=== PATIENT | female | born 1965 | race Caucasian/White ===

== ENCOUNTER 2019-03-15 13:39 | Emergency (ER) | payer BC ==
--- OUTSIDE RECORDS SUMMARY | 2019-03-15 14:30 | XMS REPORT | Continuity of Care Document ---
:1965 External Reference #:[id number] Author Name Briana Rangel NRigoberto (transmitted by agent of provider Maricruz Richards) Address [address], [place] [address] Care Team Providers Name Role Phone Fabiana Irby MD - Internal Care Team Information Knee Bolter Medicine Problems Active Problems Provider Date Hypothyroidism due to Nicolasa's thyroiditis Fabiana Irby M.D. Onset: Androgen-independent hirsutism Fabiana Irby M.D. Onset: 03/05/2015 Chronic low back pain Onset: Vitamin D deficiency Fabiana Irby M.D. 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 Migraine with typical aura Mai Bains MD Onset: 07/28/2015 Sensory function status: taste and smell Mai Bains MD Onset: 09/17/2016 Social History Type Date Description Comments Sex Unknown Tobacco Use Start: Unknown End: Former Cigarette Smoker quit long time ago Unknown only smoked 4 pk per year Smoking Status Reviewed: 03/13/19 Former Cigarette Smoker quit long time ago only smoked 4 pk per year ETOH Use Consumes 1 glass of wine per day Tobacco Use Start: Unknown End: Patient is a former Unknown smoker Recreational Drug Use Denies Drug Use Exercise Type/Frequency Exercises regularly walks dog, walking in the young Allergies, Adverse Reactions, Alerts Active Allergies Reaction Severity Comments Date Amoxicillin 03/28/2015 Augmentin 12/29/2015 Latex 07/05/2018 Medications Active Medications SIG Qnty Indications Ordering Date Provider Triamcinolone apply to dry skin 120ml R21 Briana Rangel, 03/13/2019 Acetonide once or twice N.P. 0.1% Lotion daily Valacyclovir HCL take 1 tablet by 30tabs Cindy Zeng, 02/08/2019 mouth twice a day 500mg Tablets x 5 days prn recurrences Estrace 0.5grams per 42.500gm Cindy Zeng, 01/09/2019 0.1mg/GM vagina 2x/week Cream Simethicone Extra one by mouth four 60caps R14.0 Briana Rangel, 07/12/2018 Strength times a day as N.P. 125mg needed Capsules Celecoxib Take One Capsule 30caps Briana Claire, 12/20/2017 200mg By Mouth Every Day N.P. Capsules as Needed Gabapentin Take One Capsule 90caps N95.1 Briana Claire, 12/02/2017 300mg By Mouth AT N.P. Capsules Bedtime Fluticasone spray 2 sprays 48gm J01.90 Briana Rangel, 03/25/2016 Propionate each nostril daily N.P. 50mcg/Act as needed Suspension Synthroid Take 1 Tablet By 90tabs Briana Rangel, 03/05/2015 88mcg Mouth Every Day N.P. Tablets Needs-- Labs For Further Refills Motrin Ib 1-2 twice a day as Unknown 200mg needed Tablets History Medications Estradiol 0.5gram vaginally 42.500gm Cindy Zeng MD 01/09/2019 - 0.1mg/GM every night at 01/09/2019 Cream bedtime x 14 nights then 2x/week Immunizations CPT Code Status Date Vaccine Reaction Lot # [id number] Given 12/02/2017 Influenza Virus Vaccine, No immediate [id number] Quadrivalent, Split, reaction... Preservative Free 32647 Given 11/30/2016 Tdap - No immediate [id number] Tetanus/Diptheria/Acellular reaction... Pertussis 88166 Given 11/30/2016 Influenza Virus Vaccine, No immediate reaction. [id number] Quadrivalent, Split, Preservative Free 34606 Given 12/04/2015 Influenza Virus Vaccine, Quadrivalent, Split, Preservative Free 18072 Given 03/05/2015 Influenza Virus Vaccine, [id number] Quadrivalent, Split, Preservative Free Vital Signs Date Vital Result Comment 03/13/2019 9:47am Height 66.25 inches 5'6.25" Weight 134.38 lb Heart Rate 73 /min BP Systolic Sitting 99 mmHg BP Diastolic Sitting 65 mmHg Body Temperature 97.5 F O2 % BldC Oximetry 99 % BMI (Body Mass Index) 21.5 kg/m2 01/09/2019 4:08pm Height 66.25 inches 5'6.25" Weight 136.12 lb Heart Rate 66 /min BP Systolic 97 mmHg BP Diastolic 67 mmHg O2 % BldC Oximetry 100 % BMI (Body Mass Index) 21.8 kg/m2 Results Test Acquired Date Facility Test Result H/L Range Note Cytology 01/09/2019 [facility] Cytology SEE RESULT BELOW [address] [place] [address] [phone] PDFReport [id number] <SEE NOTE> Laboratory test 09/18/2018 [facility] Lyme Screen Negative Negative finding [address] W/ [place] [address] [phone] 1 SEE RESULT BELOW Name: LEON BRADY : [address]: Cindy Zeng MD Acct: [id number] Unit: [id number] AGE: 53 Location: [facility] Re01/09/19 SEX: F Status: REG REF SPEC: [id number] ANDREE: 01/09/[address]: Cindy Zeng MD REQ: [id number] RECD: 01/09/19 STATUS: SOUT _ ORDERED: TP IMAGE ANALYS, HPV/Thin Prep, HPV 16/18 GENE COMMENTS: [id number] FINAL DIAGNOSIS Negative for Intraepithelial lesion or Malignancy HPV RESULTS Date Time Test Result Flag (u) Normal Range 01/09/19 1619 HPV CARA RFLX GE POSITIVE An Negative The high-risk HPV types detected by the assay include: 16, 18, 31, 33, 35, 39, 45, 51, 52, 56, 58, 59, 66, and 68. HPV GENOTYPE RESULTS Date Time Test Result Flag (u) Normal Range 01/09/19 1619 HPV 16 Genotype Negative Negative HPV 18/45 GT Negative Negative SPECIMEN(S) RECEIVED A. Ectocervical/Endocervical CONTINUED ON NEXT PAGE DEPARTMENT OF PATHOLOGY, [address] [place] [address] Milo Dumont M.D. Director [facility] # [id number] CYTOLOGY ADEQUACY Specimen Adequacy: Satisfactory of evaluation Transformation zone component cannot be definitely identified due to presence of atrophy or other hormonal changes CYTOLOGY PATIENT INFORMATION Patient Information: HPV: High risk HPV RNA testing regardless of pap results. HPV 16/18 Genotype Reflex Actual Specimen Date: 01/09/19 LMP If Unknown: Last Menstrual Period Not Given. ?: N Post Menopausal?: Y Hysterectomy?: N Signed by and Reported on: TRAVIS La(ASCP) [id number] This Pap test was evaluated with the assistance of the [employer] System. Due to cytologic findings at the bleach mixer microscope, comprehensive manual rescreening by a Garden Worker may be required. The Pap Smear is a screening test designed to aid in the detection of premalignant and malignant conditions of the uterine cervix. It is not a diagnostic procedure and should not be used as the sole means of detecting cervical cancer. Both false- positive and false- negative reports do occur. Depending on your risk status, a Pap smear should be obtained and evaluated every 1-3 years. END OF REPORT DEPARTMENT OF PATHOLOGY, [address] [place] [address] Milo Dumont M.D. Director [facility] # [id number] Procedures Date Code Description Status 01/30/2019 [id number] Mammogram Completed 01/26/2018 [id number] Mammogram Completed 12/07/2016 [id number] Mammogram Completed 07/22/2015 [id number] Mammogram Completed 04/10/2014 [id number] Mammogram Completed 03/21/2013 [id number] Colonoscopy Completed 03/15/2013 [id number] Mammogram Completed 10/29/2011 [id number] Mammogram Completed 10/27/2010 [id number] Mammogram Completed 05/26/2009 [id number] Mammogram Completed Medical Devices Description No Information Available Encounters Description No Information Available Assessments Date Code Description Provider 03/13/2019 R21 Rash and other nonspecific skin eruption Briana Rangel, N.P. 01/09/2019 Z01.419 Encounter for gynecological examination Cindy Zeng MD (general) (routine) without abnormal findings 01/09/2019 X58.xxxD Exposure to other specified factors, Cindy Zeng MD subsequent encounter Plan of Treatment Future Appointment(s):05/01/2019 3:00 pm - Cindy Zeng MD at [facility]01/17/2020 4:00 pm - Cindy Zeng MD at [facility]03/13/2019 - Briana Rangel, N.P.R21 Rash and other nonspecific skin eruptionNew Medication:Triamcinolone Acetonide 0.1 % - apply to dry skin once or twice dailyComments:Your rash is related to dry skin. I have prescribed a steroid based lotion, Triamcinolone. Apply this twice daily until your symptoms clear.I advise you to avoid really hot showers and baths. Functional Status Description No Information Available Mental Status Description No Information Available Referrals Description No Information Available
[2019-03-15 14:47] VITALS: BP 121/74
--- NOTE | 2019-03-15 15:22 | ED ---
Lower Extremity - HPI Summary HPI Summary: This patient is a 53-year-old. Presents to the ED with left small toe pain after jamming it this morning on a post. She states she was able to push the toe back together, however continues to endorse pain. Endorses ecchymosis. Denies previous injury to the toe. - History of Current Complaint Chief Complaint: EDExtremityLower Stated Complaint: POSS LEFT FOOT FRACTURE PER PT Time Seen by Provider: 03/15/19 13:48 Hx Obtained From: Patient Onset of Pain: Immediate Onset/Duration: Minutes Severity Initially: Mild Severity Currently: Mild Pain Intensity: 2 Pain Scale Used: 0-10 Numeric Timing: Constant Location: Is Discrete @ - left little toe Associated Signs And Symptoms: Positive: Bruising. Negative: Swelling, Redness Aggravating Factor(s): Standing, Ambulation Alleviating Factor(s): Rest Able to Bear Weight: Yes - Allergies/Home Medications Allergies/Adverse Reactions: Allergies Allergy/AdvReac Type Severity Reaction Status Date / Time amoxicillin Allergy Rash Verified 03/15/19 13:44 clavulanic acid Allergy Rash Verified 03/15/19 13:44 [From Augmentin] LATEX Allergy Rash Uncoded 03/15/19 13:44 Home Medications: Home Medications Gabapentin 03/15/19 [History] Levothyroxine Sodium [Synthroid] 03/15/19 [History] Valacyclovir HCl [Valacyclovir] 03/15/19 [History] celeCOXIB CAP* [CeleBREX CAP*] 200 mg PO DAILY 03/15/19 [History Confirmed 03/15] PMH/Surg Hx/FS Hx/Imm Hx Previously Healthy: Yes Endocrine/Hematology History: Denies: Hx Diabetes Cardiovascular History: Denies: Hx Hypertension, Hx Pacemaker/ICD Sensory History: Denies: Hx Hearing Aid Psychiatric History: Denies: Hx Panic Disorder - Cancer History Hx Chemotherapy: No Hx Radiation Therapy: No - Surgical History Surgery Procedure, Year, and Place: LAPROSCOPY, T&A - Immunization History Hx Pertussis Vaccination: No Immunizations Up to Date: Yes Infectious Disease History: No Infectious Disease History: Denies: Traveled Outside the [place] in Last 30 Days - Social History Occupation: Employed Full-time Lives: With Family Alcohol Use: None Hx Substance Use: No Substance Use Type: Reports: None Hx Tobacco Use: No Smoking Status (MU): Never Smoked Tobacco Review of Systems Negative: Fever, Chills, Fatigue, Skin Diaphoresis Negative: Dental Pain Negative: Palpitations, Chest Pain Positive: Arthralgia - left small toe Positive: Bruising Neurological: Negative All Other Systems Reviewed And Are Negative: Yes Physical Exam Triage Information Reviewed: Yes Vital Signs On Initial Exam: Initial Vitals Temp Pulse Resp BP Pulse Ox 97.5 F 69 16 113/67 100 03/15/19 13:40 03/15/19 13:40 03/15/19 13:40 03/15/19 13:40 03/15/19 13:40 Vital Signs Reviewed: Yes Appearance: Positive: Well-Appearing, Well-Nourished Skin: Positive: Warm, Skin Color Reflects Adequate Perfusion, Other - left small toe ecchymosis Head/Face: Positive: Normal Head/Face Inspection Eyes: Positive: EOMI, HILL, Conjunctiva Clear Neck: Positive: Supple, No Lymphadenopathy Respiratory/Lung Sounds: Positive: Clear to Auscultation, Breath Sounds Present Cardiovascular: Positive: RRR, Pulses are Symmetrical in both Upper and Lower Extremities Musculoskeletal: Positive: Pain @ - small toe pain Neurological: Positive: Speech Normal Psychiatric: Positive: Normal, Affect/Mood Appropriate Procedures - Sedation Patient Received Moderate/Deep Sedation with Procedure: No Diagnostics - Vital Signs Vital Signs Temp Pulse Resp BP Pulse Ox 03/15/19 14:46 97.3 F 78 16 121/74 99 03/15/19 13:40 97.5 F 69 16 113/67 100 - Laboratory Lab Statement: Any lab studies that have been ordered have been reviewed, and results considered in the medical decision making process. Lower Extremity Course/Dx - Course Course Of Treatment: This patient is evaluated for left little toe injury. X- ray obtained which shows a proximal phalanx fracture. Gunjan taped area together. Patient states she is ambulating well with little pain. She does have some small amount of ecchymosis to the left lateral side of the dorsum of the foot. Patient is given orbital follow-up. Encouraged ibuprofen. Patient ambulating well on discharge. - Diagnoses Provider Diagnoses: Fracture of proximal phalanx of toe of left foot Discharge ED - Sign-Out/Discharge Documenting (check all that apply): Patient Departure - Discharge Plan Condition: Stable Disposition: HOME Patient Education Materials: Toe Fracture (ED) Referrals: Victor Manuel Wyatt MD [Medical Doctor] - Fabiana Irby MD [Primary Care Provider] - Additional Instructions: Keep the area gunjan taped until follow up with orthopedics Call tomorrow to make an appt I have given you a referral - Billing Disposition and Condition Condition: STABLE Disposition: Home - Attestation Statements Provider Attestation: I was available for consultation for this patient. I did not evaluate the patient or participate in any medical decision making or disposition decisions unless I am specifically named in the chart as having consulted on the patient. If I have consulted on the patient, please see my own ED note on the patient encounter. Dale Infante MD
== END 2019-03-15 14:46 | disposition home or self-care (01) ==
LOC: ED 13:39
DX: S92.512A Displaced fracture of proximal phalanx of left lesser toe(s), initial encounter for closed fracture (principal); W22.09XA Striking against other stationary object, initial encounter; Y92.9 Unspecified place or not applicable; Z88.0 Allergy status to penicillin; Z88.1 Allergy status to other antibiotic agents; Z91.040 Latex allergy status; E03.9 Hypothyroidism, unspecified; Z79.890 Hormone replacement therapy; Z79.899 Other long term (current) drug therapy
CPT/HCPCS: 99282